=== PATIENT | female | born 1945 | race Caucasian/White ===

== ENCOUNTER 2017-11-13 15:50 | Emergency (ER) | payer MEDICARE, OTHER, SELFPAY ==
[2017-11-13 15:50] VITALS: BP 137/97; PULSE 96; RESP 16; TEMP 37.2; O2SAT 98; BMI 18.5
--- NOTE | 2017-11-13 16:00 | CT_ITS ---
STUDY: CT BRAIN WITHOUT CONTRAST REASON FOR EXAM: Female, 72 years old. FALL, LAC TO POSTERIOR HEAD, NO LOC RADIATION DOSAGE (If Supplied By Facility): CTDIvol = ( 44.99 ) mGy, DLP = ( 762.36 ) mGycm TECHNIQUE: Transaxial CT imaging of the brain was performed without administration of intravenous contrast material. Individualized dose optimization techniques were used for this CT. COMPARISON: None. FINDINGS: There is a left forehead hematoma. Normal calvarium. There is metallic artifact in the left sella probably representing prior aneurysm repair. There is associated streak artifact. Normal size ventricles and extra-axial spaces for the patient's age. There are areas of decreased attenuation within the white matter tracts of the supratentorial brain, consistent with microvascular disease changes. Normal basal ganglia and thalami. Normal brainstem. Normal cerebellum. There is no intracranial hemorrhage. There are no findings of an acute ischemic infarction. There is mild mucosal thickening of the right posterior ethmoid sinus. CT/Brain/Head without Contrast IMPRESSION: No acute intracranial hemorrhage or fracture is demonstrated. Electronically Signed: Monica Groves MD at 17:04 EDT , Service support ,
[2017-11-13] MEDS: Diphth,Pertuss(Acell),Tet Vac 0.5 ML Vial IM (16:20)
--- NOTE | 2017-11-13 17:28 | ED.DCSUM_ITS ---
- ER Visit Summary Date of Service: 11/13/17 Chief Complaint: [Head injury] History of Present Illness: The patient is a 72 F presents to the emergency department after sustaining a head injury about 45 minutes ago. Patient states that she try to step over a baby gate that used to keep her dogs out of her room when she tripped and fell with her head into a [place] cabinet. Patient did not lose consciousness. She denies any neck pain. Patient states that she try to call EMS but could not get an answer. Neighbor brought patient in for evaluation. Patient unsure of her last tetanus. Patient is not on any blood thinners. She denies any chest pain or shortness of breath.] Physical Examination: HEENT-PERRLA, EOMI. Cranial nerves II through XII grossly intact. TMs clear. Mucous membranes moist. No adenopathy. Patient has a 5 cm laceration over the left forehead as well as a smaller 1 cm laceration over the right side of the forehead. No bony step-offs or depressions noted. Cardiovascular-regular rate and rhythm without murmur or ectopy Lungs-clear to auscultation, chest wall stable without crepitus or subcu emphysema Abdomen-normoactive bowel sounds, soft, nontender, no rebound or rigidity, no peritoneal signs. Extremities-intact ?4, normal range of motion, normal pulses, atraumatic] Test Results: [CT scan of the brain without contrast showed nothing acute.] Emergency Department Course and Treatment: [Laceration repairs-wound sterilely draped and prepped. Wound was anesthetized with 1% lidocaine with epinephrine total of 8 cc used. Using 5-0 nylon a total of 12 single interrupted sutures placed with good wound edge approximation. Wounds were irrigated with saline copiously and also cleansed with Shur-Clens prior to suturing. The dressing was applied.] Treatment Plan: [Patient follow-up with primary care physician in 10 days for suture removal] Disposition: [Discharged home in stable condition] Impression: [Closed head injury Forehead laceration 6 cm total length-simple repair] This note was generated with [employer] software. It may contain incorrect words, spelling, and punctuation that were not noted in review of the chart prior to signing ED Disposition - Plan for ED Patient: Chief Complaint: Head Injury Referrals: Rachael Perez MD [Primary Care Provider] -
--- NOTE | 2017-11-13 17:30 | ED.DEP ---
ED Disposition - Plan for ED Patient: Chief Complaint: Head Injury Instructions: ED Concussion, ED Head Injury Closed, ED Laceration Scalp Stitch Or Stap Referrals: Rachael Perez MD [Primary Care Provider] - 10 Day for suture removal
[2017-11-13 17:41] VITALS: RESP 14
== END 2017-11-13 17:42 | disposition home or self-care (01) ==
LOC: ED 16:41
PROVIDERS: Emergency Provider Emergency Medicine; Family Provider Internal Medicine; PCP Internal Medicine
DX: S01.81XA Laceration without foreign body of other part of head, initial encounter (principal); W01.198A Fall on same level from slipping, tripping and stumbling with subsequent striking against other object, initial encounter; Y93.9 Activity, unspecified; Y92.9 Unspecified place or not applicable; Z72.0 Tobacco use
CPT/HCPCS: 12014; 70450; 90471; 90715; 99282

== ENCOUNTER 2023-12-16 12:42 | Emergency (ER) | payer MEDICARE, SELFPAY ==
[2023-12-16 12:43] VITALS: BP 179/94; PULSE 58; RESP 16; TEMP 36.8; O2SAT 97; BMI 19.4
--- NOTE | 2023-12-16 13:20 | ED.VIS.DYS ---
HPI History of Present Illness Chief Complaint: Cough Informant: patient Onset/Context/Timing Onset: Today Context: sudden Timing: Continuous Quality: Positive for Dyspnea on exertion Worsened by: Exertion Relieved by: Nothing Associated Symptoms cough and green sputum; Negative for rhinorrhea, post nasal drip, ear pain, fever, sore throat, chills or sweats Chest Pain: Positive for None Narrative Narrative: Patient presents with shortness of breath and weakness that began this morning. Patient states she was having difficulty walking down her hallway because of weakness and shortness of breath. Patient states he felt lightheaded. Family states she has been having a cough recently. Family states that today she started coughing up some green sputum. Patient denies any fevers or chills. Patient admits to some right maxillary sinus pressure. Patient denies any nausea or vomiting. Patient denies any chest pain. PE Risk Factors: Negative for Cancer, Prior DVT or PE, Recent immobilization, Recent surgery or Recent travel [facility] Medical History (Updated 12/16/23 @ 15:[address] Dinesh Johnson DO) Hypertension Home Medications ?Medication ?Instructions ?Recorded ?Last Taken ?Type azithromycin 250 mg tablet 250 mg PO DAILY #4 TABLETS 12/16/23 Unknown Rx Allergy/AdvReac Type Severity Reaction Status Date / Time banana AdvReac Hives Verified 12/16/23 12:43 codeine AdvReac Other Verified 12/16/23 12:43 Sulfa (Sulfonamide AdvReac Hives Verified 12/16/23 12:43 Antibiotics) Surgical History Hx of cerebral aneurysm repair Hx of section Social History (Updated 12/16/23 @ 13:[address] Dinesh Johnson DO) Smoking Status: Current every day smoker tobacco type: cigarettes ROS ROS ED Constitutional Constitutional ED: Denies chills or fever(s) Eyes Eyes: Denies blurry vision or change in vision ENT ENT ED: Denies rhinorrhea or sore throat Cardiovascular Cardiovascular: Denies chest pain or palpitations Respiratory/Chest Respiratory/Chest: Reports cough, dyspnea and sputum Gastrointestinal Gastrointestinal: Denies nausea or vomiting Genitourinary Genitourinary ED: Denies dysuria or hematuria Musculoskeletal Musculoskeletal: Denies back pain or neck pain Integumentary Denies abscess or rash Neurologic Neurologic: Reports weakness; Denies headache(s) Allergic/Immunologic Allergic/Immunologic ED: Denies mouth swelling or urticaria EXAM Physical Exam Const Vital Signs: 12/16/23 12:43 12/16/23 13:40 12/16/23 14:02 Temperature 98.2 F Temperature Source Oral Pulse Rate 58 L 57 L Respiratory Rate 16 18 Respiratory Effort Short of Breath Respiratory Depth Normal Respiratory Pattern Normal Normal Blood Pressure 179/94 H Blood Pressure Mean 122 Pulse Ox 97 Oxygen Delivery Method Room Air Room Air 12/16/23 14:42 Temperature Temperature Source Pulse Rate 65 Respiratory Rate 15 Respiratory Effort Respiratory Depth Respiratory Pattern Blood Pressure 178/66 H Blood Pressure Mean 103 Pulse Ox 95 Oxygen Delivery Method Positive well nourished and well developed General Appearance ED: well developed and NAD HEENT Reports moist mucous membranes Neck supple and no JVD Resp normal respiratory effort Auscultation: rhonchi throughout Cardio regular rate and regular rhythm GI non-tender and non-distended Palpation: soft Extremity normal to inspection General Extremety ED: Negative for edema or tenderness General Extremity: Negative for edema Neuro oriented x3, CN's II-XII intact bilaterally and no sensory deficits noted Cristian Coma Scale: document GCS findings Spontaneous Obeys Commands Oriented 15 Sensorium / Orientation: alert Motor Exam: strength 5/5 throughout Psych mental status grossly normal MDM MDM MDM Narrative Medical decision making narrative: Differential diagnosis includes pneumonia, bronchitis, sinusitis, pleural effusion, pulmonary embolism, cardiac dysrhythmia, cardiac ischemia, and electrolyte abnormality. Chest x-ray will be obtained to assess for pneumonia, pleural effusion, and bronchitis. EKG will be obtained to assess for cardiac dysrhythmia and cardiac ischemia. CBC will be obtained to assess for leukocytosis and anemia. Basic metabolic profile will be obtained to assess for electrolyte abnormality and renal function. High-sensitivity troponin will be obtained to assess for cardiac ischemia. D-dimer will be obtained to assess for pulmonary embolism. Lab Data Attestation: I reviewed the patient's lab results. Lab results narrative: CBC was reviewed and was essentially within normal limits. Basic metabolic profile was reviewed and was within normal limits. High-sensitivity troponin was reviewed and was normal at 7. D-dimer was reviewed and was normal at 0.40. COVID-19 PCR was reviewed and was negative. Influenza PCR was reviewed and was negative for influenza A and influenza B. RSV PCR was reviewed and was negative. Labs: Laboratory Results - last 24 hr 10/18/24 13:35 WBC 10.8 RBC 5.18 Hgb 16.2 H Hct 47.4 H MCV 91.5 MCH 31.3 MCHC 34.2 RDW Std Deviation 43.5 RDW Coeff of Lynette 12.9 Plt Count 291 MPV 10.2 Immature Gran % (Auto) 0.400 Neut % (Auto) 73.3 H Lymph % (Auto) 18.2 L Cowley % (Auto) 7.3 Eos % (Auto) 0.5 Baso % (Auto) 0.3 Absolute Neuts (auto) 8.0 H Absolute Lymphs (auto) 1.97 Nucleated RBC % 0 D-Dimer Quant (PE/DVT) 0.40 Sodium 131 L Potassium 4.2 Chloride 95 L Carbon Dioxide 28.0 Anion Gap 8 BUN 9 Creatinine 0.99 Estim Creat Clear Calc 32.19 Est GFR (MDRD) Af Amer 70 Est GFR (MDRD) Non-Af 58 L BUN/Creatinine Ratio 9.1 L Glucose 102 Calcium 10.4 H Troponin I High Sens 7 Radiography Chest X-Ray - ED: 2 View, Read by ED Physician, Read by Radiologist and Right Infiltrate Diagnostic Testing: Clinical Impression(s) from Imaging Studies Chest X-Ray 12/16/23 14:10 IMPRESSION: Indeterminate opacity within the right infrahilar region, may reflect a confluence of shadows, cannot exclude atelectasis and/or pneumonia. Electronically Signed: Sonia Bourgeois MD at 14:37 EDT , PA and lateral chest x-ray was obtained. There are 2 views. On my independent interpretation, lung iglesias show a questionable infiltrate in the right infrahilar region. There is normal cardiac silhouette. Bony thorax is normal. Radiologist also interpreted the x-ray and agrees. EKG Initial EKG: Attestation: I personally reviewed and interpreted this EKG as follows: Interpretation: No Acute Injury Pattern and Sinus Bradycardia (56) Comments: EKG was obtained. On my independent interpretation, it showed a sinus bradycardia with a rate of 56. UT interval, QRS interval, and QTc intervals were all normal. [place] was normal. There are no acute ST or T wave changes. Prior EKG tracings: not available for review Prior: No Prior Treatment and Re-Evaluation :: Patient was given a DuoNeb aerosol here. Patient was given a dose of Zithromax here. Patient was given a prescription for Zithromax. Patient was instructed to follow-up with her primary care physician in 5 to 7 days. Patient was instructed to return if worse in any way. Patient understood and was agreeable with the plan. All questions were answered. Discharge Plan Triage Chief Complaint: Cough ED Provider: Dinesh Johnson Dx/Rx/DC Orders Clinical Impression: Pneumonia, Hypertension Instructions: ED Pneumonia (Adult) Prescriptions: New azithromycin 250 mg tablet 250 mg PO DAILY Qty: 4 0RF Primary Care Provider: Rachael Perez Referrals: Rachael Perez MD [Primary Care Provider] - 5-7 Days Print Language: Bots[place] Disposition Disposition: Home, Self Care
--- NOTE | 2023-12-16 13:29 | EKG12_ITS ---
Test Reason : SOB Blood Pressure : / mmHG Vent. Rate : 056 BPM Atrial Rate : 056 BPM P-R Int : 162 ms QRS Dur : 070 ms QT Int : 410 ms P-R-T Axes : 072 040 060 degrees QTc Int : 395 ms Sinus bradycardia Cannot rule out Septal infarct , age undetermined Abnormal ECG Confirmed by Simone Espinoza ([id number]), material expeditor GARLAND BARRETO ([id number]) on 12/19/2023 11:53:28 AM Referred By: Confirmed By:Simone Espinoza
[2023-12-16] MEDS: Ipratropium/Albuterol Sulfate 3 ML AMPUL.NEB INHALATION (13:37)
[2023-12-16 13:40] VITALS: PULSE 57; RESP 18
[2023-12-16 13:58] LABS: Absolute Lymphocyte Count 1.97 X10^3/uL (0.83-4.51); Basophil# 0.03 X10^3/uL; Basophil% 0.3 % (0-1); Eosinophil# 0.05 X10^3/uL; Eosinophils% 0.5 % (0-5); Hematocrit 47.4 % (37-47); Hemoglobin 16.2 g/dL (12.0-15.0); Lymphocyte # 1.97 X10^3/ul (0.83-4.51); Lymphocyte % 18.2 % (19-41); Mean Corp Hgb Conc 34.2 g/dL (32-36); Mean Corpuscular Hgb 31.3 pg (27.0-32.0); Mean Corpuscular Volume 91.5 fL (81-99); Mean Platelet Vol. 10.2 fl (6.2-12.0); Monocyte# 0.79 X10^3/uL; Monocyte% 7.3 % (0-10); NRBC Flagged by Analyzer 0 % (0-5); Neutrophil # 7.95 X10^3/uL (2.7-7.7); Neutrophil % 73.3 % (47-70); Platelet Count 291 K/mm3 (150-450); RBC Distribution Width CV 12.9 % (11.6-14.6); RBC Distribution Width SD 43.5 fl (35.1-43.9); Red Blood Count 5.18 M/mm3 (4.2-5.4); White Blood Count 10.8 K/mm3 (4.4-11.0)
--- NOTE | 2023-12-16 14:10 | RAD_ITS ---
INDICATION: Cough EXAMINATION/TECHNIQUE: X-RAY - XR Chest 2 Views COMPARISON: No relevant prior comparison study available FINDINGS: LINES/DEVICES: None. LUNGS: There is a nonspecific opacity within the right infrahilar region. No pneumothorax. MEDIASTINUM AND CARDIOVASCULAR STRUCTURES: Cardiac silhouette not enlarged. Central airways and mediastinal contour are unremarkable. BONES AND SOFT TISSUES: Unremarkable. RAD/Chest PA and Lateral IMPRESSION: Indeterminate opacity within the right infrahilar region, may reflect a confluence of shadows, cannot exclude atelectasis and/or pneumonia. Electronically Signed: Sonia Bourgeois MD at 14:37 EDT ,
[2023-12-16 14:13] LABS: Anion Gap 8 (5-15); BUN 9 mg/dL (7-18); BUN/Creat Ratio 9.1 RATIO (10-20); Calcium,Total 10.4 mg/dL (8.5-10.1); Chloride 95 mmol/L (98-107); Creatinine, Serum 0.99 mg/dL (0.55-1.02); EST Glomerular Filtration Rate 58 mL/min (>60); Est Glom Filt Rate - Afr Amer 70 mL/min (>60); Estimated Creatinine Clearance 32.19 ml/min; Glucose 102 mg/dL (74-106); Potassium 4.2 mmol/L (3.5-5.1); Sodium Level 131 mmol/L (136-145); Troponin-I HS 7 pg/mL (3.0-54.0)
[2023-12-16 14:42] VITALS: BP 178/66; PULSE 65; RESP 15; O2SAT 95
[2023-12-16] MEDS: Azithromycin 250 MG Tablet 500 MG PO (15:53)
[2023-12-16 15:54] VITALS: BP 165/67; PULSE 63; RESP 15; TEMP 36.8; O2SAT 94
== END 2023-12-16 15:57 | disposition home or self-care (01) ==
PROVIDERS: Emergency Provider Emergency Medicine; PCP Internal Medicine; Visit Provider Emergency Medicine
DX: J18.9 Pneumonia, unspecified organism (principal); I10 Essential (primary) hypertension; F17.210 Nicotine dependence, cigarettes, uncomplicated
CPT/HCPCS: 71046; 80048; 84484; 85025; 85379; 87631; 93005; 94640; 99284; A4216